=== PATIENT | male | born 1950 | race African-American/Black ===

== ENCOUNTER 2022-11-07 06:35 | Observation (INO) | payer MEDICARE ==
[2022-11-03 16:03] LABS: BASOPHILS % 0.1 % (0.0-1.0); EOSINOPHILS # (AUTO) 0.1 (0.0-0.4); EOSINOPHILS % 2.1 % (0.0-6.0); HEMATOCRIT 46.4 % (38.2-49.6); HEMOGLOBIN 14.7 g/dL (14.0-18.0); LYMPHOCYTES # (AUTO) 1.9 (1.0-3.2); LYMPHOCYTES % 28.4 % (18.0-39.1); MEAN CORPUSCULAR HEMOGLOBIN 31.1 pg (28-32); MEAN CORPUSCULAR HGB CONC 31.7 g/dL (31-35); MEAN CORPUSCULAR VOLUME 98.1 fL (81-99); MONOCYTES % 14.3 % (4.4-11.3); NEUTROPHILS # (AUTO) 3.7 (2.1-6.9); PLATELET COUNT 281 x10e3/uL (140-360); RED BLOOD COUNT 4.73 x10e6/uL (4.3-5.7); RED CELL DISTRIBUTION WIDTH 13.8 % (11.7-14.4)
[2022-11-03 16:26] LABS: CALCIUM 9.9 mg/dL (8.4-10.2); CREATININE, SERUM 1.45 mg/dL (0.72-1.25)
[~2022-11-07] VITALS: Ht 180.3 cm; Wt 127.0 kg
[~2022-11-07 06:35] MED LIST: AMLODIPINE BESYL5 MG PO; ASPIRIN81 MG PO; CEFAZOLIN SODIUM 2 GM ONE; CELECOXIB 200 MG CAP ONE; CRESTOR10 MG PO; DEXAMETHASONE SOD PHOS 10 MG/1 ML VIAL ONE; ESOMEPRAZOLE MA40 MG PO; GABAPENTIN 300 MG CAP ONE; JARDIANCE25 MG PO; LISINOPRIL5 MG PO; METFORMIN HCL500 MG PO; SODIUM CHLORIDE 0.9% 500ML 500 ML ONE; TOUJEO SOL300 UNIT/1 SQ; TRANEXAMIC ACID 20 ML ONE; TRULICITY0.75 MG/0. SQ; Vancomycin IV 1,000 MG ONE; ZIAC 2.5-6.251 EACH PO
[2022-11-07] MEDS ORDERED: MORPHINE SULFATE/PF 1 MG/1 ML 10ML VIAL ONE (06:41)
[2022-11-07] MEDS ORDERED: BUPIVACAINE HCL 0.5% INJ 30 ML VIAL INJ ONE (06:42)
[2022-11-07] MEDS ORDERED: EPINEPHRINE 1 MG/ML 30ML VIAL ONE (06:42)
[2022-11-07] MEDS ORDERED: FENTANYL CITRATE/PF 100MCG/2 ML INJ ONE ×2 (06:42→13:34)
[2022-11-07] MEDS ORDERED: MIDAZOLAM HCL 2 MG/2 ML VIAL ONE (06:43)
[2022-11-07] MEDS ORDERED: SUGAMMADEX SODIUM 200 MG/2 ML VIAL IV ONE (06:54)
[2022-11-07] MEDS ORDERED: ACETAMINOPHEN 1000 MG/100 ML 100 ML IV ONE (06:54)
[2022-11-07] MEDS ORDERED: ROPIVACAINE 246.25 MG, EPINEPHRINE HCL 1:1000 1ML 0.5 MG, CLONIDINE HCL 0.08 MG, KETORO... INJ ONE ×5 (08:00)
[2022-11-07] MEDS ORDERED: LACTATED RINGER'S 1,000 ML ONE (08:20)
[2022-11-07] MEDS ORDERED: HYDROCODONE/APAP 5MG-325MG TAB PO PRN (08:45)
[2022-11-07] MEDS ORDERED: SODIUM CHLORIDE 0.9% 1000ML 1,000 ML IV SCH (08:45)
[2022-11-07] MEDS ORDERED: ZOLPIDEM TARTRATE 5 MG TAB PO PRN (08:45)
[2022-11-07] MEDS ORDERED: DOCUSATE SODIUM 100 MG CAP PO PRN (08:45)
[2022-11-07] MEDS ORDERED: DIPHENHYDRAMINE HCL INJ 50 MG/ML VIAL IV PRN (08:45)
[2022-11-07] MEDS ORDERED: ONDANSETRON HCL INJ 2MG/ML 2ML 2 MG/ML VIAL IV PRN (08:45)
[2022-11-07] MEDS ORDERED: HYDROMORPHONE 1MG/1ML INJ ONE (09:00)
[2022-11-07] MEDS: ASPIRIN 325 MG TAB PO SCH ×2 (10:33→17:27)
[2022-11-07] MEDS: CELECOXIB 100 MG CAP PO SCH ×2 (10:33→17:27)
[2022-11-07] MEDS: HYDROCODONE/APAP 7.5MG-325MG 1 EA TAB PO PRN ×2 (10:34→17:28)
[2022-11-07 12:07] VITALS: BP 116/65
[2022-11-07 12:25] VITALS: BP 116/65
[2022-11-07] MEDS ORDERED: PHENYLEPHRINE HCL 1% 10 MG/ML VIAL ONE (12:35)
[2022-11-07] MEDS ORDERED: ROCURONIUM BROMIDE 10 MG/ML 5ML VIAL IV ONE (12:35)
[2022-11-07] MEDS ORDERED: POVIDONE IODINE 0.05% 0.05 % ML PO ONE (12:35)
[2022-11-07] MEDS ORDERED: DEXAMETHASONE SOD PHOS INJ 4 MG/ML SDV ONE (12:35)
[2022-11-07] MEDS ORDERED: PROPOFOL IV EMULSION 10 MG/ML 20 ML VIAL ONE (12:35)
[2022-11-07] MEDS ORDERED: ONDANSETRON HCL INJ 2MG/ML 2ML 2 MG/ML VIAL ONE (12:35)
[2022-11-07] MEDS ORDERED: LIDOCAINE HCL 2% LOCAL INJ 5 ML SDV VIAL INJ ONE (12:35)
[2022-11-07] MEDS ORDERED: SEVOFLURANE INHAL SOLN 250 ML PEN BTL ONE (12:35)
[2022-11-07 12:38] VITALS: BP 116/65
[2022-11-07] MEDS ORDERED: ACETAMINOPHEN 1000 MG/100 ML IV PRN (15:00)
[2022-11-07 16:13] VITALS: BP 95/55
[2022-11-07] MEDS: NYSTATIN 15 GM POWDER UD BTL TOP SCH (17:33)
[2022-11-07] MEDS ORDERED: SIMVASTATIN 40 MG TAB PO SCH (21:00)
[2022-11-08 05:36] VITALS: BP 95/55
[2022-11-08 05:38] VITALS: BP 95/55
[2022-11-08 05:40] LABS: HEMATOCRIT 40.8 % (38.2-49.6); HEMOGLOBIN 12.8 g/dL (14.0-18.0)
[2022-11-08] MEDS ORDERED: PANTOPRAZOLE SOD 40 MG TABEC PO SCH (07:30)
[2022-11-08] MEDS ORDERED: METFORMIN HCL 500 MG TAB PO SCH (08:00)
[2022-11-08 08:19] VITALS: BP 128/72
[2022-11-08 08:28] VITALS: BP 128/72
[2022-11-08] MEDS ORDERED: INSULIN GLARGINE HUM REC ANLOG 46 UNIT SQ SCH (09:00)
[2022-11-08] MEDS ORDERED: AMLODIPINE BESYLATE 5 MG TAB PO SCH (09:00)
[2022-11-08] MEDS ORDERED: LISINOPRIL 2.5 MG TAB PO SCH (09:00)
[2022-11-08] MEDS: NYSTATIN 15 GM POWDER UD BTL TOP SCH (09:00)
[2022-11-08] MEDS ORDERED: NON-FORMULARY MEDICATION (Empagliflozin (Jardiance) 25 MG) PO SCH (09:00)
[2022-11-08] MEDS ORDERED: BISOPROLOL/HCTZ 5/6.25MG TAB PO SCH (09:00)
[2022-11-08] MEDS ORDERED: ONDANSETRON HCL 4 MG ORAL DISINTEGRATING TAB PO PRN (09:15)
[2022-11-08] MEDS: ASPIRIN 325 MG TAB PO SCH (10:00)
[2022-11-08] MEDS: CELECOXIB 100 MG CAP PO SCH (10:01)
[2022-11-08 16:35] VITALS: BP 117/67
== END 2022-11-08 18:29 | disposition home health service (06) ==
LOC: OR 06:35 → PACU V 08:45 → MED/SURG3 10:09
PROVIDERS: ADMIT Specialist; ATTEND Specialist
DX: M16.11 Unilateral primary osteoarthritis, right hip (principal); E66.01 Morbid (severe) obesity due to excess calories; Z68.41 Body mass index [BMI] 40.0-44.9, adult; K21.9 Gastro-esophageal reflux disease without esophagitis; E78.00 Pure hypercholesterolemia, unspecified; E11.22 Type 2 diabetes mellitus with diabetic chronic kidney disease; I12.9 Hypertensive chronic kidney disease with stage 1 through stage 4 chronic kidney disease, or unspecified chronic kidney disease; N18.30 Chronic kidney disease, stage 3 unspecified; E11.69 Type 2 diabetes mellitus with other specified complication; E78.5 Hyperlipidemia, unspecified; Z01.818 Encounter for other preprocedural examination
CPT/HCPCS: 0223U; 27130; 36415 ×3; 71046; 72170; 80048; 82948 ×2; 85014; 85018; 85025; 86850; 86900; 86920; 93005; 94799 ×2; 97110 ×2; 97116 ×3; 97162; 97530 ×3; C1713 ×2; C1776 ×2; G0378 ×2; J0131; J0171; J0690 ×2; J1100 ×2; J1170; J1885; J2001; J2250; J2370; J2405; J2704; J2795; J3010; J3370; J7040; J7121; S0164